=== PATIENT | female | born 1995 | race Caucasian/White ===

== ENCOUNTER → 2020-09-26 | Outpatient (CLI) | payer OTHER ==
[~2020-09-26] MED LIST: ASPIRIN CHEWABL81 MG PO; HYDROCODONE-HOMA5 ML PO; MYCOLOG II CREA15 GM TOP; PREDNISONE 50 M50 MG PO; PREDNISONE20 MG PO
== END ==
LOC: RAD 16:09
DX: M79.671 Pain in right foot (principal)
CPT/HCPCS: 73630

== ENCOUNTER → 2020-11-18 | Outpatient (CLI) | payer OTHER | LOC: SLEEP 15:10 | DX: R29.818 Other symptoms and signs involving the nervous system (principal); J45.30 Mild persistent asthma, uncomplicated; E66.9 Obesity, unspecified; R06.83 Snoring; J30.9 Allergic rhinitis, unspecified; I10 Essential (primary) hypertension; E03.9 Hypothyroidism, unspecified; G43.909 Migraine, unspecified, not intractable, without status migrainosus; E11.9 Type 2 diabetes mellitus without complications; Z68.41 Body mass index [BMI] 40.0-44.9, adult | CPT/HCPCS: 95810 ==

== ENCOUNTER → 2021-04-17 | Outpatient (CLI) | payer OTHER | LOC: US 09:43 | DX: N64.4 Mastodynia (principal) | CPT/HCPCS: 76641-LT ==

== ENCOUNTER → 2021-12-21 | Outpatient (CLI) | payer OTHER | LOC: EXRD 15:00 | DX: S92.335A Nondisplaced fracture of third metatarsal bone, left foot, initial encounter for closed fracture (principal); S92.909D Unspecified fracture of unspecified foot, subsequent encounter for fracture with routine healing | CPT/HCPCS: 77080 ==

== ENCOUNTER → 2022-03-24 | Outpatient (CLI) | payer OTHER | LOC: KOH-I 13:45 | DX: U07.1 COVID-19 (principal); J20.9 Acute bronchitis, unspecified; R06.02 Shortness of breath | CPT/HCPCS: 71046 ==

== ENCOUNTER → 2022-04-14 | Outpatient (CLI) | payer OTHER | LOC: HEART 5 03-31 08:30 | DX: R00.2 Palpitations (principal) ==